=== PATIENT | female | born 2000 | race Caucasian/White ===

== ENCOUNTER 2021-08-11 12:39 | Outpatient (CLI) | payer OTHER, SELFPAY ==
[2021-08-11 13:18] LABS: Influenza Control Valid (Valid)
== END 2021-08-11 12:40 | disposition home or self-care (01) ==
LOC: CHSLAB 12:42
PROVIDERS: PCP Family Medicine; Visit Provider Family Medicine
DX: J02.9 Acute pharyngitis, unspecified (principal)
CPT/HCPCS: 87804

== ENCOUNTER 2021-11-24 15:56 | Outpatient (CLI) | payer OTHER, SELFPAY ==
--- NOTE | ~2021-11-24 | XR_ITS ---
EXAMINATION: XR knee LT 3V DATE: 11/24/2021 16:33 INDICATION: Left knee pain post fall TECHNIQUE: AP, sunrise and lateral views of the left knee were obtained. COMPARISON: None. FINDINGS: Patella demarco. 2-3 mm medial distraction of a likely patellofemoral retinacular avulsion fracture man g the medial margin of the patella. No other fractures identified. Joint spaces appear normal on nonw eightbearing imaging. Soft tissue swelling at the anteromedial aspect of the left knee. No left knee joint effusion. IMPRESSION: 1. Patella demarco and mild distraction of a small medial patellofemoral retinacular avulsion fracture a long the medial margin of the patella. Reviewed, dictated and finalized at location B. IMPRESSION: 1. Patella demarco and mild distraction of a small medial patellofemoral retinacul ar avulsion fracture along the medial margin of the patella.
== END 2021-11-24 15:57 | disposition home or self-care (01) ==
LOC: CHSIMG 15:57
PROVIDERS: PCP Family Medicine; Visit Provider Family Medicine
DX: M25.562 Pain in left knee (principal)
CPT/HCPCS: 73562

== ENCOUNTER 2022-04-15 14:52 | Outpatient (CLI) | payer OTHER, SELFPAY ==
[2022-04-15 15:51] LABS: Strep Group A RT-PCR Not Detected (Negative)
[2022-04-15 15:59] LABS: Influenza A QL RT-PCR Negative (Negative); Influenza B QL RT-PCR Negative (Negative); SARS-CoV-2 RNA PCR Negative (Negative)
== END 2022-04-15 14:53 | disposition home or self-care (01) ==
LOC: CHSLAB 14:54
PROVIDERS: PCP Family Medicine; Visit Provider Family Medicine
DX: J06.9 Acute upper respiratory infection, unspecified (principal); Z20.822 Contact with and (suspected) exposure to COVID-19
CPT/HCPCS: 87502; 87651; C9803; U0003; U0005

== ENCOUNTER 2023-11-22 10:11 | Outpatient (CLI) | payer OTHER, SELFPAY ==
--- NOTE | ~2023-11-22 | XR_ITS ---
XR knee LT 3V 11/22/2023 10:37 Indication: Left knee pain Procedure: 3 views left knee Comparison: No prior studies for comparison. Findings: No acute fracture, subluxation or dislocation. Stable alignment of healed distracted medial patellofemoral retinacular avulsion fracture with developing sclerosis. No significant joint effusio n. No foreign bodies. Impression: 1: No acute bone or joint abnormality. Reviewed, dictated and finalized at location B. Impression: 1: No acute bone or joint abnormality.
== END 2023-11-22 10:12 | disposition home or self-care (01) ==
LOC: CHSIMG 10:16
PROVIDERS: PCP Family Medicine; Visit Provider Family Medicine
DX: M25.562 Pain in left knee (principal)
CPT/HCPCS: 73562